=== PATIENT | male | born 1990 | race Caucasian/White ===

== ENCOUNTER 2024-12-15 19:03 | Emergency (ER) | payer MEDICAID, SELFPAY ==
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
[2024-12-15 19:17] VITALS: BP 112/74; PULSE 83; RESP 16; TEMP 36.6; O2SAT 98; BMI 29.5
[2024-12-16 00:30] VITALS: BP 105/69; PULSE 73; RESP 18; TEMP 36.1; O2SAT 100
[2024-12-16 03:08] VITALS: BP 97/65; PULSE 51; TEMP 36.4; O2SAT 97
[2024-12-16] MEDS: Fluorescein Sodium STRIP 1 STRIP EYE-RIGHT (03:17)
[2024-12-16] MEDS: Tetracaine HCl/PF 0.5% Oph Sol 4 ML DROPS 3 DROP EYE-RIGHT (03:17)
[2024-12-16] MEDS: Erythromycin Base 0.5% Oph Oin 1 GM TUBE 1 CM EYE-RIGHT (04:21)
--- NOTE | 2024-12-16 04:26 | PC.NURSE ---
medicated per mar.
--- NOTE | 2024-12-16 04:38 | PC.NURSE ---
This nurse reviewed discharge instruction with pt. pt verbalized understanding, no sign of distress, pt had a steady gait upon discharge.
[2024-12-16 04:39] VITALS: BP 97/65; PULSE 51; RESP 16; TEMP 36.4; O2SAT 97
== END 2024-12-16 04:40 | disposition home or self-care (01) ==
PROVIDERS: Emergency Provider Emergency Medicine; PCP Dentist General Practice
DX: S05.01XA Injury of conjunctiva and corneal abrasion without foreign body, right eye, initial encounter (principal); S00.83XA Contusion of other part of head, initial encounter; Y04.2XXA Assault by strike against or bumped into by another person, initial encounter; Y93.9 Activity, unspecified; Y92.9 Unspecified place or not applicable; Y99.9 Unspecified external cause status
CPT/HCPCS: 70450; 70486; 99284

== ENCOUNTER → 2024-12-15 19:27 | Outpatient (BNV) | payer SELFPAY | PROVIDERS: Visit Provider Radiology Diagnostic Radiology | DX: H53.8 Other visual disturbances (principal); H57.10 Ocular pain, unspecified eye; Y04.8XXA Assault by other bodily force, initial encounter | CPT/HCPCS: 70450; 70486 ==